=== PATIENT | female | born 1950 | race Caucasian/White ===

== ENCOUNTER 2018-02-23 11:18 | Outpatient (CLI) | payer MEDICARE, OTHER | END 2018-02-23 11:19 | disposition home or self-care (01) | LOC: DI 11:18 | PROVIDERS: ATTEND Internal Medicine Cardiovascular Disease | DX: R00.2 Palpitations (principal); R06.00 Dyspnea, unspecified | CPT/HCPCS: 93306 ==

== ENCOUNTER 2019-05-26 11:16 | Outpatient (CLI) | payer MEDICARE, OTHER ==
--- NOTE | 2019-06-03 09:42 | Mammography Report ---
Reason: ROUTINE MAMMO Procedure Date: 05/26/2019 Accession Number: [id number] / [id number] Procedure: MGS - Screening Mammo Dig Bilat CPT Code: FULL RESULT: EXAM: Screening Mammo Dig Bilat DATE: 05/26/2019 11:37 AM CLINICAL HISTORY: Screening encounter. Family history of breast cancer in the mother at the age of 80. TECHNIQUE: (B) - Bilateral CC, laterally exaggerated CC, MLO views were obtained. COMPARISON: 01/29/2017 and 05/29/2011. PARENCHYMAL PATTERN: (D) - The breast(s) demonstrate(s) heterogeneously dense fibroglandular parenchyma. FINDINGS: There are coarse typically benign calcifications. There are no suspicious masses, calcifications, or areas of distortion. IMPRESSION: Benign findings. BI-RADS category 2. RECOMMENDATION: (ANNUAL) - Recommend routine annual screening mammography. BI-RADS CATEGORY: (2) - Benign Findings. STANDARD QUALIFYING STATEMENTS: 1. This examination was reviewed with the aid of Computer-Aided Detection (CAD). 2. A negative or benign imaging report should not preclude biopsy if clinically suspicious findings are present. 3. Dense breasts may obscure an underlying neoplasm. 4. This examination was reviewed without the aid of 3D breast imaging (tomosynthesis).
== END 2019-05-26 11:17 | disposition home or self-care (01) ==
LOC: DI.S 11:16
PROVIDERS: ATTEND Physician Assistant Medical
DX: Z12.31 Encounter for screening mammogram for malignant neoplasm of breast (principal); Z80.3 Family history of malignant neoplasm of breast
CPT/HCPCS: 77067

== ENCOUNTER 2019-05-27 13:12 | Outpatient (CLI) | payer MEDICARE, OTHER ==
[2019-05-27 17:48] LABS: THYROID STIMULATING HORMONE 4.5 uIU/mL (0.34-5.60)
[2019-05-27 17:50] LABS: FREE T4 (FREE THYROXINE) 0.75 ng/dL (0.58-1.64)
== END 2019-05-27 13:13 | disposition home or self-care (01) ==
LOC: LAB.S 13:12
PROVIDERS: ATTEND Physician Assistant Medical
DX: E03.9 Hypothyroidism, unspecified (principal)
CPT/HCPCS: 36415; 84439; 84443; 84481

== ENCOUNTER 2019-10-27 08:26 | Outpatient (CLI) | payer MEDICARE ==
[2019-10-27 09:49] LABS: BASOPHILS % (AUTO) 0.7 %; EOSINOPHILS # (AUTO) 0.1 10^3/uL (0.0-0.7); EOSINOPHILS % (AUTO) 2.6 %; HGB - HEMOGLOBIN 13.2 g/dL (12.0-16.0); LYMPHOCYTES # (AUTO) 2.3 10^3/uL (1.5-3.5); LYMPHOCYTES % (AUTO) 41.7 %; MEAN CORPUSCULAR HEMOGLOBIN 31.1 pg (27.0-31.0); MEAN CORPUSCULAR HGB CONC 32.5 g/dL (32.0-36.0); MEAN CORPUSCULAR VOLUME 95.5 fL (81.0-99.0); MEAN PLATELET VOLUME 10.3 fL (7.9-10.8); MONOCYTES # (AUTO) 0.5 10^3/uL (0.0-1.0); MONOCYTES % (AUTO) 9.8 %; NEUTROPHILS # (AUTO) 2.5 10^3/uL (1.5-6.6); NEUTROPHILS % (AUTO) 45.2 %; PLT - PLATELET COUNT 280 10^3/uL (130-450); RED BLOOD COUNT 4.25 10^6/uL (4.20-5.40); RED CELL DISTRIBUTION WIDTH 13.2 % (12.0-15.0); WHITE BLOOD COUNT 5.4 x10^3/uL (4.8-10.8)
[2019-10-27 10:05] LABS: ALBUMIN 4.4 g/dL (3.2-5.5); ALBUMIN/GLOBULIN RATIO 1.2 (1.0-2.2); ALKALINE PHOSPHATASE 71 IU/L (42-121); ALT ALANINE AMINOTRANSFERASE 65 IU/L (10-60); AST ASPARTATE AMINOTRANSFERASE 41 IU/L (10-42); BILIRUBIN,TOTAL 0.7 mg/dL (0.2-1.0); BUN - BLOOD UREA NITROGEN 17 mg/dL (6-20); CALCIUM 9.5 mg/dL (8.5-10.3); CARBON DIOXIDE - CO2 28 mmol/L (21-32); CHLORIDE 100 mmol/L (101-111); CHOL/HDL RATIO 2.7 (<4.4); CHOLESTEROL 195 mg/dL; CREATININE 0.7 mg/dL (0.4-1.0); GFR - MDRD 83 (>89); GLUCOSE 109 mg/dL (70-100); HDL CHOLESTEROL 71 mg/dL; LDL CHOLESTEROL,CALCULATED 101 mg/dL; LDL/HDL RATIO 1.4 (<4.4); SODIUM 139 mmol/L (135-145); VLDL CHOLESTEROL 23 mg/dL
== END 2019-10-27 08:27 | disposition home or self-care (01) ==
LOC: LAB.S 08:26
PROVIDERS: ATTEND Physician Assistant Medical
DX: Z51.81 Encounter for therapeutic drug level monitoring (principal); Z79.899 Other long term (current) drug therapy; E78.5 Hyperlipidemia, unspecified
CPT/HCPCS: 36415; 80053; 80061; 83721; 85025

== ENCOUNTER 2020-07-13 08:00 | Outpatient (CLI) | payer MEDICARE | END 2020-07-13 23:59 | disposition home or self-care (01) | LOC: LAB.R 08:00 | PROVIDERS: ATTEND Registered Nurse | DX: Z12.11 Encounter for screening for malignant neoplasm of colon (principal) | CPT/HCPCS: 82274 ==

== ENCOUNTER 2020-11-14 09:49 | Outpatient (CLI) | payer MEDICARE, OTHER ==
--- NOTE | 2020-11-15 11:35 | Mammography Report ---
BILATERAL DIGITAL SCREENING MAMMOGRAM 3D/2D WITH EXAGGERATED CC: 11/14/2020 CLINICAL: Routine screening. Comparison is made to exams dated: 05/26/2019 mammogram, 01/29/2017 mammogram, and 06/06/2011 mammogram - [facility]. The tissue of both breasts is heterogeneously dense. This may lower the sensitivity of mammography. No significant masses, calcifications, or other findings are seen in either breast. There has been no significant interval change. IMPRESSION: NEGATIVE There is no mammographic evidence of malignancy. A 1 year screening mammogram is recommended. This exam was interpreted at Station ID: [id number]. NOTE: For mammograms, a report in lay terms will be sent to the patient. Approximately 15% of breast malignancies will not be visualized mammographically. In the management of a palpable breast mass, a negative mammogram must not discourage biopsy of a clinically suspicious lesion. Electronically Signed By: Gerardo Harmon M.D. aty/penrad:11/14/2020 10:34:08 ACR BI-RADS Category 1: Negative 3341F PARENCHYMAL PATTERN: (D) - The breast(s) demonstrate(s) heterogeneously dense fibroglandular brenda motley. BI-RADS CATEGORY: (1) - 1 RECOMMENDATION: (ANNUAL) - Recommend routine annual screening mammography. [id number] 1 year screening LATERALITY: (B)
== END 2020-11-14 09:50 | disposition home or self-care (01) ==
LOC: DI.S 09:49
PROVIDERS: ATTEND Registered Nurse
DX: Z12.31 Encounter for screening mammogram for malignant neoplasm of breast (principal); Z80.3 Family history of malignant neoplasm of breast

== ENCOUNTER 2020-11-16 10:48 | Outpatient (CLI) | payer MEDICARE, OTHER ==
--- NOTE | 2020-11-16 12:37 | DEXA Report ---
PROCEDURE: Dexa Spine and/or Hip INDICATIONS: POSTMENOPAUSAL TECHNIQUE: Dual energy x-ray absorptiometry (DXA) was performed on a [employer] System. Regions measur ed are the AP Spine, femoral neck, and if needed forearm. COMPARISON: None. FINDINGS: Lumbar Spine: Bone Mineral Density 1.038 g/cm/cm,T score -1.2, minimal osteopenia Left Hip: Bone Mineral Density 0.720 g/cm/cm,T score -2.3, moderate to severe osteopenia Left Femoral Neck: Bone Mineral Density 0.632 g/cm/cm, T score -2.9, osteoporosis (T score greater or equal to -1.0: NORMAL) (T score from -1.1 to -2.4: OSTEOPENIA) (T score less than or equal to -2.5 to: OSTEOPOROSIS) Impression: Osteoporosis within left femoral neck with moderate to severe osteopenia in the left hip. Patients with diagnosis of osteoporosis or osteopenia should have regular bone mineral density assess ment. For those eligible for Medicare, routine testing is allowed once every 2 years. Testing frequ ency can be increased for patients who have rapidly progressing disease or for those who are receivin g medical therapy to restore bone mass. Reviewed by: Jessica Ryan MD on 11/16/2020 12:35 PM PST Approved by: Jessica Ryan MD on 11/16/2020 12:35 PM PST Station ID: [id number]
== END 2020-11-16 10:49 | disposition home or self-care (01) ==
LOC: DI 10:48
PROVIDERS: ATTEND Registered Nurse
DX: M81.0 Age-related osteoporosis without current pathological fracture (principal); Z78.0 Asymptomatic menopausal state

== ENCOUNTER 2021-05-16 17:39 | Outpatient (CLI) | payer MEDICARE, OTHER | END 2021-05-16 17:40 | disposition home or self-care (01) | LOC: COV 17:39 | PROVIDERS: ATTEND Family Medicine | DX: M79.10 Myalgia, unspecified site (principal); R53.83 Other fatigue; Z20.822 Contact with and (suspected) exposure to COVID-19 ==

== ENCOUNTER 2021-12-20 10:00 | Outpatient (CLI) | payer MEDICARE, OTHER ==
[2021-12-20 14:35] LABS: BASOPHILS # (AUTO) 0.1 10^3/uL (0.0-0.1); BASOPHILS % (AUTO) 0.9 %; EOSINOPHILS # (AUTO) 0.2 10^3/uL (0.0-0.7); EOSINOPHILS % (AUTO) 4.3 %; HCT - HEMATOCRIT 40.8 % (37.0-47.0); HGB - HEMOGLOBIN 13.3 g/dL (12.0-16.0); LYMPHOCYTES # (AUTO) 2.6 10^3/uL (1.5-3.5); LYMPHOCYTES % (AUTO) 49.3 %; MEAN CORPUSCULAR HEMOGLOBIN 31.7 pg (27.0-31.0); MEAN CORPUSCULAR HGB CONC 32.6 g/dL (32.0-36.0); MEAN CORPUSCULAR VOLUME 97.1 fL (81.0-99.0); MEAN PLATELET VOLUME 10.6 fL (7.9-10.8); MONOCYTES # (AUTO) 0.5 10^3/uL (0.0-1.0); MONOCYTES % (AUTO) 10.2 %; NEUTROPHILS # (AUTO) 1.9 10^3/uL (1.5-6.6); NEUTROPHILS % (AUTO) 35.1 %; PLT - PLATELET COUNT 353 10^3/uL (130-450); RED CELL DISTRIBUTION WIDTH 13.7 % (12.0-15.0); WHITE BLOOD COUNT 5.3 x10^3/uL (4.8-10.8)
[2021-12-20 14:47] LABS: FECAL OCCULT BLOOD (FIT) NEGATIVE (NEGATIVE)
[2021-12-20 15:35] LABS: ALBUMIN 4.2 g/dL (3.2-5.5); ALBUMIN/GLOBULIN RATIO 1.3 (1.0-2.2); ALKALINE PHOSPHATASE 93 IU/L (42-121); ALT ALANINE AMINOTRANSFERASE 53 IU/L (10-60); AST ASPARTATE AMINOTRANSFERASE 41 IU/L (10-42); BILIRUBIN,TOTAL 0.5 mg/dL (0.2-1.0); BUN - BLOOD UREA NITROGEN 17 mg/dL (6-20); CARBON DIOXIDE - CO2 26 mmol/L (21-32); CHLORIDE 100 mmol/L (101-111); CHOL/HDL RATIO 2.6 (<4.4); CHOLESTEROL 193 mg/dL; CREATININE 0.7 mg/dL (0.4-1.0); GFR - MDRD 82 (>89); GLUCOSE 101 mg/dL (70-100); HDL CHOLESTEROL 73 mg/dL; LDL CHOLESTEROL,CALCULATED 89 mg/dL; LDL/HDL RATIO 1.2 (<4.4); POTASSIUM 4.7 mmol/L (3.5-5.0); SODIUM 139 mmol/L (135-145); TOTAL PROTEIN 7.5 g/dL (6.7-8.2); TRIGLYCERIDES 155 mg/dL; VLDL CHOLESTEROL 31 mg/dL
[2021-12-20 15:36] LABS: THYROID STIMULATING HORMONE 6.17 uIU/mL (0.34-5.60)
[2021-12-20 16:17] LABS: FREE T4 (FREE THYROXINE) 0.72 ng/dL (0.58-1.64)
[2021-12-21 11:22] LABS: HEPATITIS C ANTIBODY NON-REACTIVE (NON-REACTIVE)
== END 2021-12-20 10:01 | disposition home or self-care (01) ==
LOC: LAB.S 10:00
PROVIDERS: ATTEND Registered Nurse
DX: Z79.899 Other long term (current) drug therapy (principal); M79.7 Fibromyalgia; E78.5 Hyperlipidemia, unspecified; E03.9 Hypothyroidism, unspecified; Z12.11 Encounter for screening for malignant neoplasm of colon; Z11.59 Encounter for screening for other viral diseases
CPT/HCPCS: 36415; 80053; 80061; 82274; 83721; 84439; 84443; 85025; 86803

== ENCOUNTER 2022-06-08 17:41 | Outpatient (CLI) | payer MEDICARE, OTHER ==
--- NOTE | 2022-06-08 21:52 | XRAY Report ---
PROCEDURE: Knee 2 View RT INDICATIONS: RIGHT KNEE PAIN TECHNIQUE: 2 views of the right knee(s) were acquired. COMPARISON: None. FINDINGS: Bones: No fractures or dislocations. Mild tricompartmental osteoarthritis is seen with joint space n arrowing and subchondral sclerosis more prominent in medial femoral tibial compartment. No suspicious bony lesions. Soft tissues: No joint effusion. No suspicious soft tissue calcifications. IMPRESSION: Mild tricompartmental osteoarthritis. No fracture or dislocation. No significant joint e ffusion. Reviewed by: Alvin Bolden MD on 06/08/2022 9:50 PM PDT Approved by: Alvin Bolden MD on 06/08/2022 9:50 PM PDT Station ID: [id number]
== END 2022-06-08 17:42 | disposition home or self-care (01) ==
LOC: DI.S 17:41
PROVIDERS: ATTEND Registered Nurse
DX: M17.11 Unilateral primary osteoarthritis, right knee (principal)

== ENCOUNTER 2023-08-27 09:53 | Outpatient (CLI) | payer MEDICARE, OTHER ==
--- NOTE | 2023-08-28 12:13 | Mammography Report ---
BILATERAL DIGITAL SCREENING MAMMOGRAM 3D/2D: 08/27/2023 CLINICAL: Routine screening. Family history of breast cancer. Comparison is made to exams dated: 04/23/2022 mammogram, 11/14/2020 mammogram, 05/26/2019 mammogram, and 01/29/2017 mammogram - [facility]. Both breasts are heterogeneously dense, which may obscure small masses (category c / 51-75% glandular tissue). There are benign calcifications in both breasts. No significant masses, calcifications, or other findings are seen in either breast. There has been no significant interval change. IMPRESSION: BENIGN There is no mammographic evidence of malignancy. A 1 year screening mammogram is recommended. Based on the Tyrer Cuzick model (a risk assessment model) the patients lifetime risk is 10.4% and he r 10 year risk is 7.8%. According to the ACR, ACS, and NCCN guidelines, an annual breast MRI exam thu ng with mammogram is recommended if the patients lifetime risk is 20% or greater. This exam was interpreted at Station ID: [id number]. NOTE: For mammograms, a report in lay terms will be sent to the patient. Approximately 15% of breast malignancies will not be visualized mammographically. In the management of a palpable breast mass, a negative mammogram must not discourage biopsy of a clinically suspicious lesion. Electronically Signed By: Gerardo sykes/stephanie:08/27/2023 20:26:31 letter sent: No_Letter ACR BI-RADS Category 2: Benign Finding(s) 3342F PARENCHYMAL PATTERN: (D) - The breast(s) demonstrate(s) heterogeneously dense fibroglandular parlarony tolu. BI-RADS CATEGORY: (2) - 2 Mammogram [id number] 1 year screening LATERALITY: (B)
== END 2023-08-27 09:54 | disposition home or self-care (01) ==
LOC: DI.S 09:53
PROVIDERS: ATTEND Physician Assistant Medical
DX: Z12.31 Encounter for screening mammogram for malignant neoplasm of breast (principal); Z80.3 Family history of malignant neoplasm of breast; R92.333 Mammographic heterogeneous density, bilateral breasts; R92.1 Mammographic calcification found on diagnostic imaging of breast

== ENCOUNTER 2023-10-18 12:32 | Outpatient (CLI) | payer MEDICARE, OTHER ==
[2023-10-18 15:19] LABS: BASOPHILS % (AUTO) 0.6 %; EOSINOPHILS # (AUTO) 0.2 10^3/uL (0.0-0.7); EOSINOPHILS % (AUTO) 3.5 %; HCT - HEMATOCRIT 39.6 % (37.0-47.0); HGB - HEMOGLOBIN 12.7 g/dL (12.0-16.0); LYMPHOCYTES # (AUTO) 2.3 10^3/uL (1.5-3.5); LYMPHOCYTES % (AUTO) 42.5 %; MEAN CORPUSCULAR HEMOGLOBIN 31.4 pg (27.0-31.0); MEAN CORPUSCULAR HGB CONC 32.1 g/dL (32.0-36.0); MEAN PLATELET VOLUME 10.9 fL (7.9-10.8); MONOCYTES # (AUTO) 0.6 10^3/uL (0.0-1.0); MONOCYTES % (AUTO) 11.6 %; NEUTROPHILS # (AUTO) 2.2 10^3/uL (1.5-6.6); NEUTROPHILS % (AUTO) 41.8 %; PLT - PLATELET COUNT 313 10^3/uL (130-450); RED BLOOD COUNT 4.04 10^6/uL (4.20-5.40); RED CELL DISTRIBUTION WIDTH 13.2 % (12.0-15.0); WHITE BLOOD COUNT 5.4 x10^3/uL (4.8-10.8)
[2023-10-18 16:08] LABS: THYROID STIMULATING HORMONE 0.44 uIU/mL (0.34-5.60)
[2023-10-18 16:30] LABS: ALBUMIN 4.4 g/dL (3.2-5.5); ALBUMIN/GLOBULIN RATIO 1.4 (1.0-2.2); ALKALINE PHOSPHATASE 60 IU/L (42-121); ALT ALANINE AMINOTRANSFERASE 23 IU/L (10-60); AST ASPARTATE AMINOTRANSFERASE 23 IU/L (10-42); BILIRUBIN,TOTAL 0.4 mg/dL (0.2-1.0); BUN - BLOOD UREA NITROGEN 19 mg/dL (6-20); CALCIUM 9.7 mg/dL (8.5-10.3); CARBON DIOXIDE - CO2 29 mmol/L (21-32); CHLORIDE 102 mmol/L (101-111); CHOL/HDL RATIO 3.2 (<4.4); CHOLESTEROL 196 mg/dL; CREATININE 0.7 mg/dL (0.6-1.3); GFR - MDRD 82 (>89); GLUCOSE 103 mg/dL (74-104); HDL CHOLESTEROL 61 mg/dL; LDL CHOLESTEROL,CALCULATED 77 mg/dL; LDL/HDL RATIO 1.3 (<4.4); POTASSIUM 4.1 mmol/L (3.5-4.5); SODIUM 138 mmol/L (135-145); TOTAL PROTEIN 7.5 g/dL (6.4-8.9); TRIGLYCERIDES 288 mg/dL (48-352); VLDL CHOLESTEROL 58 mg/dL
== END 2023-10-18 12:33 | disposition home or self-care (01) ==
LOC: LAB.S 12:32
PROVIDERS: ATTEND Registered Nurse
DX: Z13.9 Encounter for screening, unspecified (principal)
CPT/HCPCS: 36415; 80053; 80061; 83721; 84443; 85025

== ENCOUNTER 2024-03-30 10:37 | Outpatient (CLI) | payer MEDICARE, OTHER ==
--- NOTE | 2024-03-30 14:41 | SLEEP CARE CONSULTATION ---
Information from patient questionnaire entered by Yovany Malik. I have reviewed and concur with the information entered by Yovany Malik. This document represents the service I personally performed and the decisions made by me, Beulah Carbajal MD, [facility]. History of Present Illness Service Date and Time: 03/30/2024 1037 Reason for Visit: New patient Chief Complaint: reports: Insomnia, Unrefreshed sleep, Fatigue Date of Onset: 25YRS SOME YRS BETTER THAN OTHERS Usual bedtime: 2200 Time it takes to fall asleep: 3HRS Observed to quit breathing while asleep: No Sleeps alone due to snoring: No Number of times waking at night: 2 Reasons for waking at night: reports: Pain, Bathroom, Other (VADIM MOUTH) Toss, Turn, or Twitch while sleeping: No Recalls having dreams: No Usually gets out of bed at: [id number] Feels refreshed in the morning: No Morning headache: No Sleepy or fatigued during the day: Yes Ever fallen asleep while driving: No Takes day naps: Yes Dreams during day naps: No Prior sleep studies: No Additional HPI information: I have the pleasure of seeing Ms. Field today regarding the possibility of her having obstructive sleep apnea. As you know, she is a 73-year-old lady who has complained of insomnia for the past 25 years. The patient tells me that she normally goes to bed around 10 pm, and it takes her approximately 3 hours to fall asleep. During that time, she reads, which she actually enjoys. She has been told that she snores occasionally. She has never been observed to stop breathing in her sleep. Her sleeps in the same bed. He wears a CPAP. She can recall waking up on average 2 times during the night. Most of the time she wakes up because of having to use the bathroom and pain. She has never awakened because of her own snoring, choking, or having to gasp for air. There is not a lot of tossing and turning in her sleep. No somniloquy (sleep talking) or somnambulism (sleep walking). Generally, there is no recollection of dreams. In the morning she usually gets up out of the bed around 8:30 - 10 a.m. not feeling refreshed nor rested. She usually does not have a morning headache. During the day she complains of feeling sleepy and fatigued. However, her score on Kendrick Sleepiness Scale is only 5 out of 24. She never has fallen asleep while driving nor has had any accident due to sleepiness. She usually does not take naps during the day. Upon falling asleep during the day she denies having vivid dreams. She reports symptoms of restless leg syndrome. She denies having impaired concentration during the day. - Parasomnia Symptoms Ever been unable to move upon waking from sleep: No Walks in sleep: No Talks in sleep: No Ever acted out dreams in sleep: No Ever felt weak in the knees when startled or emotional: No Bothered by creepy, crawly, restless sensations in legs: Yes Problems with memory or concentration: No Subjective Initial Kendrick Sleepiness Scale score: 5 (03/30/24) Past Medical History Past Medical History: reports: Arthritis, Hypothyroidism, Fibromyalgia, Anxiety, Depression, Other (BACK ISSUES. JOINT PAIN) Social History The patient's occupation is a RE. Patient is and lives in [place]. Have you smoked in the past 12 months: No Alcohol use: No Caffeine use: Yes Caffeine amount and frequency: 1 CUP COFFEE EVERY MORNING Family History Family history of sleep disordered breathing: Yes Family Hx Sleep Apnea: Sibling: Sleep apnea - Treated Allergies and Home Medications Known drug allergies: No Drug allergies reviewed: Yes Home medication list reviewed: Yes Allergy and home medication list: Allergies No Known Drug Allergies Allergy (Verified 01/09/24 11:51) Review of Systems Weight gain over past 5 years: 10 Cardiovascular: denies: high blood pressure, palpitations, chest pain, irregular heart rate or pulse, leg or foot swelling, have to sleep sitting up, other Respiratory: denies: shortness of breath, wheeze, sputum production, chronic cough, other Gastrointestinal: denies: heartburn, difficulty swallowing, nausea, vomitting, diarrhea, abdominal pain, other Urinary: denies: incontinence, frequency, urgency, impotence, other Neurological: denies: headaches, seizure, head trauma, disorientation, speech dysfunction, gait or balance problems, fainting or unconsciousness, other Psychiatric: reports: anxiety, depression Ear/Nose/Throat: reports: sinus problems, wisdom teeth removed Endocrine: reports: thyroid disease, sluggishness, too hot or cold Musculoskeletal: reports: joint pain, back pain, muscle pain or cramping Immunologic: denies: sneezing, rash, itching, allergies to food or environment, other Physical Exam Vital signs obtained and entered by: YOVANY Gilmore MA Blood Pressure: 147/81 (LEFT ARM) Cuff size: regular Heart Rate: 72 O2 Saturation: 98 Height: 5 ft 2 in Weight: 131 lb 12.8 oz Body Mass Index: 24.0 BMI Classification: Normal Neck circumference: 13.5 Mood/affect: Normal HEENT: No craniofacial malformation Nostrils: patent to airflow Turbinates: normal Septum: midline Mouth and throat: narrow oropharynx Soft palate: long Hard palate: normal Uvula: normal Uvula visualization: 50% Mallampati Class II Tongue: normal in size Tonsils: small Chin and jaw: normal size and position Neck: normal w/o lymphadenopathy or thyromegaly Heart: regular rate and rhythm Lungs: clear bilaterally Extremities: no edema or clubbing Neurologic: intact Impression and Plan IMPRESSION: 1. Insomnia, due to excessive time spent in bed of 11 hours a night. Assuming the normal sleep requirement of 8 hours a night, it is only appropriate that she lie awake in bed for 3 hours. However, she uses that time to read in bed. Therefore, she may continue with the routine. I explained to her that if she wishes to fall asleep earlier, she will have to first wake up earlier consistently. A sleep study will be ordered because she snores and complains of feeling sleepy during the day. I informed the patient of what the sleep studies involve and after some discussion, she agreed to proceed. Plan: 1. Continue with the same routine but do not expect to fall asleep before 1 am. 2. Schedule an in-laboratory polysomnography. 3. Return for follow up after the sleep study. Follow up with Sleep Care in: 1-2 months Visit Type: In Office Time Spent with Patient (minutes): 15 Provider Statement: I spent 100% of the Face to Face Visit with the patient with greater than 50% spent counseling the patient and coordination of care.
[2024-03-30 14:49] VITALS: BP 147/81; O2SAT 98
== END 2024-03-30 10:38 | disposition home or self-care (01) ==
LOC: SC 10:37
PROVIDERS: ATTEND Internal Medicine Pulmonary Disease
DX: G47.00 Insomnia, unspecified (principal); R06.83 Snoring; G47.10 Hypersomnia, unspecified
CPT/HCPCS: 99202; G0463; 99212

== ENCOUNTER 2024-05-28 08:00 | Outpatient (CLI) | payer MEDICARE, OTHER ==
--- NOTE | 2024-05-29 13:34 | XRAY Report ---
PROCEDURE: Chest 2V INDICATIONS: FATIGUE/COUGH TECHNIQUE: 2 views of the chest were obtained. COMPARISON: None. FINDINGS: Surgical changes and devices: None. Lungs and pleura: No pleural effusions or pneumothorax. Lungs are clear. Mediastinum: Mediastinal contours appear normal. Heart size is normal. Bones and chest wall: No suspicious bony lesions. Overlying soft tissues appear unremarkable. IMPRESSION: Normal two-view chest x-ray Reviewed by: Kristian Wright MD on 05/29/2024 12:33 PM HOMER Approved by: Kristian Wright MD on 05/29/2024 12:33 PM AKDT Station ID: [id number]
== END 2024-05-28 23:59 | disposition home or self-care (01) ==
LOC: DI.S 08:00
PROVIDERS: ATTEND Registered Nurse
DX: R53.83 Other fatigue (principal); R05.1 Acute cough